=== PATIENT | female | born 1945 | race Hispanic/Latino ===

== ENCOUNTER 2024-12-18 14:05 | Emergency (ER) | payer SELFPAY ==
[2024-12-18] VITALS (11 sets, daily range): BP systolic 104–171; BP diastolic 44–95
--- NOTE | 2024-12-18 14:35 | ED.CVA ---
History of Present Illness
General
Chief Complaint: CVA/TIA Symptoms
Source: patient and family
Exam Limitations: dementia
Time Seen by Provider: 12/18/24 14:23
Nursing documentation reviewed up to this point in time: agreed with
Onset of Stroke Symptoms
Onset of symptoms known: Yes
Date of onset of symptoms: 12/17/24
Time of onset of symptoms: 23:00
History of Present Illness
History of Present Illness:
79-year-old female with past no history of dementia previous drug hypertension hyperlipidemia presenting to the emergency department with concerns of neglect of the left side starting last night around 11 PM roughly 15 hours prior to arrival. Does
have a history of dementia is considered mild at this point.
Review of Systems
Review of Systems
Allergies reviewed?: Yes
All Other Systems: ROS reviewed and negative except as documented in HPI and ROS
Phy Exam
Physical Exam
Physical Exam:
GENERAL: Alert , in no apparent distress
EYE: pupils equal and reactive
NECK: Supple, no significant adenopathy.
ENT: o/p clr, mmm.
CARDIAC: Regular rate and rhythm .
LUNGS: Clear breath sounds bilaterally, no acute respiratory distress, no wheezes/rales/rhonchi
ABDOMEN: Soft, without focal tenderness, no r/g, no cvat
NEUROLOGICAL: Alert oriented to place and self but not to time and current events. Patient has no vision to the left side and has a hemianopsia to the left side. Good strength bilaterally of the upper and lower extremities. Normal sensation
normal general coordination with [id number] but unable to locate my hand on the left side of vision.
SKIN: Warm and dry, skin intact.
MUSCULOSKELETAL: No edema, well perfused.
PSYCH: Normal and appropriate interaction.
Scores
NIH Stroke Score
Level of Consciousness: 0 - Alert
LOC Questions: 0-Answers both correctly
LOC Commands: 0-Performs both correctly
Best Horizontal Gaze: 0-Normal
Visual Otero: 2=Full hemianopia
Facial Palsy: 0=Normal, symmetrical
Motor - Right Arm: 0=No drift 10 seconds
Motor - Left Arm: 0=No drift 10 seconds
Motor - Right Le-No drift 5 seconds
Motor - Left Le-No drift 5 seconds
Limb Ataxia: 0-Absent
Sensation: 0-Normal
Best Language: 0-No aphasia
Dysarthria: 0-Normal
Extinction and Inattention: 0-No abnormality
Total Score:: 2
Course
Orders/Labs/Results
Orders:
Orders
12/18/24 14:33
CT Head W/o Iv Contrast Urgent
Reason For Exam: left sided hemianopsia
Cardiac Monitoring- Treatment ONCE
12/18/24 14:34
Electrocardiogram (*1) Stat
Reason for Study: Other
Other Reason for Exam: neuro symptoms
EKG- Treatment ONCE
12/18/24 14:48
Complete Blood Count/With Diff Urgent
Comprehensive Metabolic Panel Urgent
Creatine Phosphokinase Urgent
Comment: ADD ON
Magnesium Urgent
Comment: ADD ON
12/18/24 15:25
Protime/PTT Urgent
12/18/24 16:56
Labetalol HCl [Trandate] 10 mg IV NOW STA
12/18/24 17:01
Levetiracetam Injectable [Keppra] 1,000 mg IV NOW STA
12/18/24 17:04
Levetiracetam Injectable [Keppra] 1,000 mg .ROUTE .STK-MED ONE
12/18/24 17:07
CT Head & Neck Angio W/wo IV Urgent
Comment:
Reason For Exam: Neurosurgeon request
12/18/24 17:12
Case Management Consult ONCE
Case Management Consult: Other
Comment: N oinsurance,options?
12/18/24 17:16
EEG Routine Routine
Reason for Exam: seizure
Urine Drug Abuse Screen Routine
12/18/24 17:17
Urinalysis Routine
12/18/24 17:18
MRI Brain [MR Brain Without Contrast] Routine
Comment:
Reason For Exam: ICH
OK for patient to be off Cardiac Monitoring for MRI: No
Recent pill cam endoscopy?: No
12/18/24 17:21
Add On- LAB Urgent
Tests Added?: CK, magnesium
12/18/24 19:24
Lorazepam [Ativan] 0.5 mg IV NOW STA
12/18/24 19:25
Lorazepam [Ativan] 2 mg .ROUTE .STK-MED ONE
12/18/24 23:00
Levetiracetam Injectable [Keppra] 1,000 mg IV Q12H
Abnormal Lab Results
12/18/24
14:48
WBC 12.3 H 10^3/uL
(4.8-10.8)
MCH 31.8 H pg
(27.0-31.0)
Abs Immat Gran (auto) 0.1 H 10^3/uL
(0-0.05)
Absolute Neuts (auto) 11.2 H 10^3/uL
(1.4-6.5)
Absolute Lymphs (auto) 0.6 L 10^3/uL
(1.2-3.4)
Neutrophils % 91.0 H %
(42.2-75.2)
Lymphocytes % 4.5 L %
(20.5-51.1)
BUN 19 H mg/dl
(7-17)
Glucose 126 H mg/dl
(70-99)
AST 41 H U/L
(14-36)
ALT 48 H U/L
(0-35)
12/18/24 14:48
12/18/24 14:48
Vital Signs
Initial and Last Documented VS:
Initial Vital Signs
Temp Pulse Resp BP Pulse Ox
99.2 F 98 16 156/71 98
12/18/24 14:08 12/18/24 14:08 12/18/24 14:08 12/18/24 14:08 12/18/24 14:08
Last Documented Vital Signs
Temp Pulse Resp BP Pulse Ox
99.2 F 77 14 109/95 99
12/18/24 14:08 12/18/24 19:00 12/18/24 19:00 12/18/24 19:00 12/18/24 17:32
MDM/Problems Addressed
MDM/Problems Addressed:
79-year-old female presenting to the emergency department today with concerns of loss of vision to the left side starting last night roughly 15 hours prior to arrival to the emergency department. No specific numbness or weakness. Here she has
hemianopsia to the left side otherwise no focal neurologic findings. NIH of 2. Case was discussed with neurology recommending CT angiogram.
CT Noncon showed large right posterior parietal and temporal parenchymal hemorrhage with mild associated leftward midline shift. Case is immediately discussed with neurosurgery plan to transfer for further management. Additional CT angiogram was
performed. Blood pressure was in the 150s patient was given dose of labetalol with improving blood pressure.
*Critical Care Note
Total Time (30-74mins, 75-104mins- exclusive of procedures): Not Applicable
ED Attending Note
-
Portions of this chart may have been created with voice recognition software.� Occasional wrong word or��sound alike� substitutions may have occurred due to the inherent limitations of voice recognition software.
Discharge Plan
Departure
Patient Disposition: Acute [facility]
Date of Disposition: 12/18/24
Time of Disposition: 17:27
Patient with high blood pressure during this ER visit?: No
Condition: Fair
Covid-19: Not Applicable
Discharge Problem:
Cerebral parenchymal hemorrhage
Prescriptions:
No Action
metformin 500 mg Tablet
500 mg PO NOON
donepezil 10 mg Tablet
10 mg PO DAILY@1500
levothyroxine 25 mcg Tablet
25 mcg PO DAILY
mirtazapine 15 mg Tablet
15 mg PO HS
rosuvastatin 20 mg Tablet
10 mg PO Q48H
memantine 10 mg Tablet
10 mg PO DAILY@1100
cholecalciferol (vitamin D3) [Vitamin D3] 25 mcg (1,000 unit) Tablet
25 mcg PO DAILY
magnesium oxide 400 mg magnesium Tablet
400 mg PO HS
Referrals:
NONE,* [Family Provider] -
Hospital Transfer
Other hospital: [facility]
I certify that the patient requires transfer: Yes
Discussed case with accepting physician: Yes
Reason for transfer: higher level of care, availability of service and specialties available
Interventions
Interventions:
*Risk Screen - Suicide Last Done: 12/18/24 14:08
*General Assessment Last Done: 12/18/24 14:08
*Neglect/Abuse Screening Last Done: 12/18/24 14:08
*ED- Fall Risk Assessment Last Done: 12/18/24 14:08
*ED COVID-19 Vaccine History Last Done: 12/18/24 14:08
ED- Pulmonary Assessment Last Done: 12/18/24 14:31
ED- Neurological Assessment Last Done: 12/18/24 14:31
ED- Cardiac Assessment Last Done: 12/18/24 14:31
Discharge Date and Time
Print Language: GIBRALTARIAN
[2024-12-18 15:03] LABS: % Basophils 0.3 % (0-2); % Eosinophils 0.1 % (0-6); % Immature Granulocytes 0.4 % (0-0.5); % Lymphocytes 4.5 % (20.5-51.1); % Monocytes 3.7 % (1.7-9.3); Absolute Immature Granulocytes 0.1 10^3/uL (0-0.05); Absolute Lymphocytes 0.6 10^3/uL (1.2-3.4); Absolute Monocytes 0.5 10^3/uL (0.1-0.6); Absolute Neutrophils 11.2 10^3/uL (1.4-6.5); Hematocrit 41.8 % (37.0-47.0); Hemoglobin 14.1 g/dL (12.0-16.0); Mean Corp Hgb Conc. 33.7 g/dL (33.0-37.0); Mean Corpuscular Hgb 31.8 pg (27.0-31.0); Mean Corpuscular Volume 94.4 fL (81.0-99.0); Mean Platelet Volume 9.7 fL (7.4-10.4); Nucleated Red Blood Cells % 0 %; Platelet Count 267 10^3/uL (130-400); Red Blood Cell Count 4.43 10^6/uL (4.20-5.40); Red Cell Dist. Width 12.8 % (11.5-14.5); White Blood Cell Count 12.3 10^3/uL (4.8-10.8)
[2024-12-18 15:23] LABS: ALT (SGPT) 48 U/L (0-35); AST (SGOT) 41 U/L (14-36); Albumin 4.8 g/dl (3.5-5.0); Alkaline Phosphatase 103 U/L (38-126); Blood Urea Nitrogen 19 mg/dl (7-17); Calcium 8.8 mg/dl (8.4-10.2); Carbon Dioxide 25 mmol/L (22-30); Chloride 105 mmol/L (98-107); Glucose 126 mg/dl (70-99); Potassium 4.1 mmol/L (3.5-5.1); Sodium 140 mmol/L (135-145); Total Bilirubin 0.7 mg/dl (0.2-1.3); Total Protein 7.3 g/dl (6.3-8.2); eGFR > 60.00
[2024-12-18 15:57] LABS: INR 0.96; PT 13.3 Sec (11.4-14.6)
[2024-12-18 15:58] LABS: APTT 29.7 Sec (23.4-35.0)
[2024-12-18] MEDS: TRANDATE 10 MG IV (16:58)
--- NOTE | 2024-12-18 16:59 | CON.NEURO ---
Consultation
Order
Date of Consultation: 12/18/24
Requesting Provider: Tommy Mcguire Jr, PA-C
Reason for Consult: ICH
Neurology Consultation Note.
HPI: This is a 79-year-old woman who presented to [facility] on 12/18/2024 with visual symptoms. The patient's daughter reports that this morning around 8 or 9 AM, the patient began bumping into levin and had difficulty perceiving
objects on her left side while eating. Ms. Bowden has a history of dementia and has been symptomatic since at least 2021.
ER VS: 156/71-171/84, 98, afebrile
EKG:NSR, QTc Int : 450 ms
Labs: Glucose�126, WBCs 12.3, normal PT, PTT, sodium, platelets.
CT head wo contrast-Large right posterior parietal and temporal parenchymal hemorrhage with mild associated leftward midline shift.
CTA head/neck-pending
PMH: dementia, HTN, DLP, DM, hypothyroidism, vitamin D deficiency
PSH: hysterectomy
SH: on 10/05/2024, relocated from [facility] to 10 days ago; non-smoker, no history excess alcohol use; retired nurse recreation assistant
FH: Father from asthma
All:NKDA
ROS: Limited due to encephalopathy
General: Intermittently agitated
Cardio: Regular rate and rhythm . Extremities are without cyanosis or edema.
Neuro:
Mental Status: Alert, oriented to person, person. Attends to examiner briefly. Follows simple requests. Poor attention, nonfluent in Gabonese
Cranial Nerves: Orthophoric primary gaze. Pupils 2 mm, reactive. Blink to threat on the left. No clear facial weakness or dysarthria.
Motor: Moves all limbs antigravity symmetrically.
Reflexes: Limited exam due to cooperation
Sensory: Limited exam due to poor attention
Coordination: No tremors myoclonic movements.
Gait: deferred
Assessment and Plan:
I. Acute right temporoparietal ICH. Likely etiology�hypertensive vasculopathy versus amyloid angiopathy.
II. Encephalopathy (vascular, neurodegenerative).
III. Hypertensive emergency
- NPO
- AHA guidelines recommend lowering systolic SBP to <160 mmHg
- Treat persistently elevated MAP>110 with Labetalol IV;
- Maintain elevation of HOB 30-45 degrees
-Continuous monitoring using pulse oximetry if O2�saturation is <96%
-Normal saline should be used for maintenance and replacement fluids.
-Neurosurgery consultation
- If elevated intracranial pressure is suspected or herniation is apparent in imaging- Hyperventilate to maintain pCO2�25mm for a maximum length of time of 6 hours; Osmotic diuresis using Mannitol: load 1g per kg IV bolus and maintain on 0.5g per kg
IV Q6h; check serum osmolality 1 hour prior to each dose.���Dose should be held if serum osm>310
-Treat persistently elevated MAP>110 with Labetalol IV
-Follow-up CTA of the head result
-SCD/JASWINDER
I personally reviewed all radiology and labs along with past medical records pertinent to current medical problems. Total time spent in patient care is 60 minutes.
Thank you for allowing us to participate in the care of this patient. We will continue to follow. Please do not hesitate to contact us with any questions or concerns.
Subjective/Objective
Subjective Data
Date of Service: December 18, 2024
Objective Data
Vital Signs
Temp Pulse Resp BP Pulse Ox
37.3 C 83 13 156/61 97
12/18/24 14:08 12/18/24 16:46 12/18/24 16:46 12/18/24 16:46 12/18/24 16:46
Lab Results
12/18/24 14:48
12/18/24 14:48
PT 13.3 Sec (11.4-14.6) 12/18/24 15:25
INR 0.96 12/18/24 15:25
APTT 29.7 Sec (23.4-35.0) 12/18/24 15:25
Sodium 140 mmol/L (135-145) 12/18/24 14:48
Potassium 4.1 mmol/L (3.5-5.1) 12/18/24 14:48
BUN 19 mg/dl (7-17) H 12/18/24 14:48
Glucose 126 mg/dl (70-99) H 12/18/24 14:48
Calcium 8.8 mg/dl (8.4-10.2) 12/18/24 14:48
Patient Allergies
No Known Allergies Allergy (Unverified 12/18/24 14:13)
Medications
-
Home Medications
�Medication �Instructions �Recorded
cholecalciferol (vitamin D3) 25 25 mcg PO DAILY 12/18/24
mcg (1,000 unit) tablet (Vitamin
D3)
donepezil 10 mg tablet 10 mg PO DAILY@1500 12/18/24
levothyroxine 25 mcg tablet 25 mcg PO DAILY 12/18/24
magnesium oxide 400 mg PO HS 12/18/24
memantine 10 mg tablet 10 mg PO DAILY@1100 12/18/24
metformin 500 mg tablet 500 mg PO NOON 12/18/24
mirtazapine 15 mg tablet 15 mg PO HS 12/18/24
rosuvastatin 20 mg tablet 10 mg PO Q48H 12/18/24
Vital Signs and Labs
-
Vital Signs and Labs:
Vital Signs
Temp Pulse Resp BP Pulse Ox
37.3 C 83 13 156/61 97
12/18/24 14:08 12/18/24 16:46 12/18/24 16:46 12/18/24 16:46 12/18/24 16:46
Lab Results
12/18/24 14:48
12/18/24 14:48
PT 13.3 Sec (11.4-14.6) 12/18/24 15:25
INR 0.96 12/18/24 15:25
APTT 29.7 Sec (23.4-35.0) 12/18/24 15:25
Sodium 140 mmol/L (135-145) 12/18/24 14:48
Potassium 4.1 mmol/L (3.5-5.1) 12/18/24 14:48
BUN 19 mg/dl (7-17) H 12/18/24 14:48
Glucose 126 mg/dl (70-99) H 12/18/24 14:48
Calcium 8.8 mg/dl (8.4-10.2) 12/18/24 14:48
Medications
-
Medications:
Generic Name Dose Route Start Last Admin
Trade Name Freq PRN Reason Stop Dose Admin
Levetiracetam 1,000 mg 12/18/24 20:00
Levetiracetam (100 Mg/Ml) 500 Mg/5 Ml Vial IV 01/15/25 19:59
Q12 AMILCAR
Home Medications
-
Home Medications
cholecalciferol (vitamin D3) 25 mcg (1,000 unit) tablet (Vitamin D3) 25 mcg PO DAILY 12/18/24
donepezil 10 mg tablet 10 mg PO DAILY@1500 12/18/24
levothyroxine 25 mcg tablet 25 mcg PO DAILY 12/18/24
magnesium oxide 400 mg PO HS 12/18/24
memantine 10 mg tablet 10 mg PO DAILY@1100 12/18/24
metformin 500 mg tablet 500 mg PO NOON 12/18/24
mirtazapine 15 mg tablet 15 mg PO HS 12/18/24
rosuvastatin 20 mg tablet 10 mg PO Q48H 12/18/24
[2024-12-18] MEDS: KEPPRA 1000 MG IV (17:06)
[2024-12-18 17:36] LABS: Creatine Phosphokinase 65 U/L (30-135); Magnesium 2.3 mg/dl (1.6-2.3)
[2024-12-18] MEDS: ATIVAN 0.5 MG IV (19:35)
== END 2024-12-18 19:55 | disposition short-term general hospital (02) ==
LOC: EMR 14:05
PROVIDERS: Physician Assistant; EMERGENCY PHYSICIAN Emergency Medicine; OTHER PHYSICIAN Psychiatry & Neurology Neurology
DX: I61.8 Other nontraumatic intracerebral hemorrhage (principal); G93.40 Encephalopathy, unspecified; I16.1 Hypertensive emergency; E03.9 Hypothyroidism, unspecified; E11.9 Type 2 diabetes mellitus without complications; F03.90 Unspecified dementia, unspecified severity, without behavioral disturbance, psychotic disturbance, mood disturbance, and anxiety; Z79.899 Other long term (current) drug therapy; Z90.710 Acquired absence of both cervix and uterus
CPT/HCPCS: 99285; 96374; 96375; 70450; 70496; 70498; 80053; 82550; 83735; 85025; 85610; 85730; 93005; Q9967

== ENCOUNTER → 2025-01-15 10:36 | Outpatient (REF) | payer SELFPAY | LOC: RAD 10:36 | PROVIDERS: FAMILY PHYSICIAN Family Medicine | DX: R05.3 Chronic cough (principal) | CPT/HCPCS: 71045 ==

== ENCOUNTER 2025-01-22 16:00 | Outpatient (RCR) | payer SELFPAY | END 2025-01-22 23:59 | disposition home or self-care (01) | LOC: ROT 16:00 | DX: R26.81 Unsteadiness on feet (principal); R47.01 Aphasia; R27.9 Unspecified lack of coordination; R41.0 Disorientation, unspecified; Z73.6 Limitation of activities due to disability; I69.21 Cognitive deficits following other nontraumatic intracranial hemorrhage; I69.211 Memory deficit following other nontraumatic intracranial hemorrhage; I69.228 Other speech and language deficits following other nontraumatic intracranial hemorrhage | CPT/HCPCS: 97110; 97112; 97163; 97167; 97530; 97535 ==

== ENCOUNTER 2025-02-05 10:11 | Emergency (ER) | payer OTHER, SELFPAY ==
[2025-02-05 10:13] VITALS: BP 138/62
[2025-02-05 11:10] VITALS: BMI 21.5
[2025-02-05 11:27] LABS: % Basophils 0.7 % (0-2); % Eosinophils 0.3 % (0-6); % Immature Granulocytes 1.6 % (0-0.5); % Lymphocytes 9.9 % (20.5-51.1); % Monocytes 6.9 % (1.7-9.3); % Neutrophils 80.6 % (42.2-75.2); Absolute Basophils 0.1 10^3/uL (0-0.2); Absolute Immature Granulocytes 0.2 10^3/uL (0-0.05); Absolute Lymphocytes 0.9 10^3/uL (1.2-3.4); Absolute Monocytes 0.6 10^3/uL (0.1-0.6); Absolute Neutrophils 7.4 10^3/uL (1.4-6.5); Hematocrit 40.8 % (37.0-47.0); Hemoglobin 13.4 g/dL (12.0-16.0); Mean Corp Hgb Conc. 32.8 g/dL (33.0-37.0); Mean Corpuscular Hgb 32.1 pg (27.0-31.0); Mean Corpuscular Volume 97.8 fL (81.0-99.0); Mean Platelet Volume 9.9 fL (7.4-10.4); Nucleated Red Blood Cells % 0 %; Platelet Count 239 10^3/uL (130-400); Red Blood Cell Count 4.17 10^6/uL (4.20-5.40); Red Cell Dist. Width 13.1 % (11.5-14.5); White Blood Cell Count 9.1 10^3/uL (4.8-10.8)
[2025-02-05 11:34] LABS: Urine Albumin 1+ (Neg - Trace); Urine Bilirubin Negative (Negative); Urine Character Clear (Clear); Urine Color Yellow; Urine Glucose Negative (Negative); Urine Ketone Negative (Negative); Urine Leukocyte 1+ (Negative); Urine Nitrite Negative (Negative); Urine Occult Blood 2+ (Negative); Urine Specific Gravity 1.025 (<1.030); Urine Urobilinogen Negative (Neg - 1+)
[2025-02-05 11:35] LABS: ALT (SGPT) 22 U/L (0-35); AST (SGOT) 24 U/L (14-36); Alkaline Phosphatase 70 U/L (38-126); Blood Urea Nitrogen 25 mg/dl (7-17); Calcium 9.4 mg/dl (8.4-10.2); Carbon Dioxide 27 mmol/L (22-30); Chloride 109 mmol/L (98-107); Estimated Creatinine Clearance 41 ml/min; Glucose 89 mg/dl (70-99); Lipase 232 U/L (23-300); Magnesium 2.3 mg/dl (1.6-2.3); Sodium 142 mmol/L (135-145); Total Bilirubin 0.4 mg/dl (0.2-1.3); Total Protein 6.4 g/dl (6.3-8.2); eGFR > 60.00
[2025-02-05 11:45] LABS: Urine Urothelial Cell 0-2 /LPF (FEW)
[2025-02-05 11:47] LABS: Urine Bacteria Moderate (Negative)
[2025-02-05 12:00] VITALS: BP 143/67
[2025-02-05] MEDS: PROTONIX IV 40 MG IV (12:01)
[2025-02-05] MEDS: MORPHINE SULFATE 2 MG IV (12:02)
--- NOTE | 2025-02-05 14:02 | ED.CVA ---
History of Present Illness
General
Chief Complaint: CVA/TIA Symptoms
Source: patient
Exam Limitations: none
Time Seen by Provider: 02/05/25 10:18
Nursing documentation reviewed up to this point in time: agreed with
Onset of Stroke Symptoms
Onset of symptoms known: Yes
Date of onset of symptoms: 02/05/25
History of Present Illness
History of Present Illness:
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 Daughter states that
patient does exhibit confusion and slurred speech periodically, but appeared to be more prevalent this morning. However, at the time evaluation ED, daughter does state that patient is pretty much back at her baseline. In addition, patient started
to complain of right-sided abdominal pain, which she has experienced intermittently over the past 1 month. Denies nausea, vomiting, or diarrhea. Denies fever or chills. Denies headache. Denies coughing. Denies recent change in medications or
diet. Patient is currently not taking any blood thinning medications. Patient is currently receiving outpatient physical therapy and Occupational Therapy.
Review of Systems
Review of Systems
Allergies reviewed?: Yes
All Other Systems: ROS reviewed and negative except as documented in HPI and ROS
Constitutional: Reports no symptoms; Denies fever or chills
Respiratory: Reports no symptoms; Denies cough
Cardiac: Reports no symptoms
ABD/GI: Reports abdominal pain; Denies nausea, vomiting or diarrhea
: Reports no symptoms
Musculoskeletal: Reports no symptoms
Skin: Reports no symptoms
Neurological: Reports other (Confusion)
Phy Exam
Physical Exam
Physical Exam:
Physical Exam
General: no apparent distress, not acutely ill. afebrile
Head: nc/at. eomi
Neck: supple. normal range of motion.
Heart: s1/s2 regular rate and rhythm
Lungs: no acute respiratory distress. clear bilaterally
Abdomen: normal bowel sounds. not tender.
Neuro: alert and oriented x 2. no focal neurological deficits. normal speech.
Skin: no rash
Psychiatric: well kept. interactive and cooperative
Extremities: no edema. no calf tenderness.
Course
Orders/Labs/Results
Orders:
Orders
02/05/25 10:43
US Abdomen Complete/Upper Urgent
Comment:
Reason For Exam: RUQ/epigastric pain
02/05/25 10:44
CT Head W/o Iv Contrast Urgent
Comment:
Reason For Exam: mental status change, hx recent cva
02/05/25 11:08
Complete Blood Count/With Diff Urgent
Comprehensive Metabolic Panel Urgent
Lipase Urgent
Magnesium Urgent
Urinalysis Reflex To Culture Urgent
Date Specimen was Collected: 02/05/25
Time Specimen was Collected: 10:55
Urine Microscopic Reflex Cult Urgent
Urine Culture Urgent
ROBBY Source: U
Specimen Description:
Date Specimen was Collected: 02/05/25
Time Specimen was Collected: 10:55
02/05/25 11:57
Morphine Sulfate 2 mg IV NOW STA
Pantoprazole [Protonix IV] 40 mg IV NOW STA
Abnormal Lab Results
02/05/25
11:08
RBC 4.17 L 10^6/uL
(4.20-5.40)
MCH 32.1 H pg
(27.0-31.0)
MCHC 32.8 L g/dL
(33.0-37.0)
Abs Immat Gran (auto) 0.2 H 10^3/uL
(0-0.05)
Absolute Neuts (auto) 7.4 H 10^3/uL
(1.4-6.5)
Absolute Lymphs (auto) 0.9 L 10^3/uL
(1.2-3.4)
Immature Gran % 1.6 H %
(0-0.5)
Neutrophils % 80.6 H %
(42.2-75.2)
Lymphocytes % 9.9 L %
(20.5-51.1)
Chloride 109 H mmol/L
(98-107)
BUN 25 H mg/dl
(7-17)
Ur Occult Blood Reflex 2+ A
(Negative)
Leukocyte Esterase Rfl 1+ A
(Negative)
Urine RBC 3-6 A /HPF
(0-2)
Urine Bacteria (Reflex) Moderate A
(Negative)
Urine Albumin (Reflex) 1+ A
(Neg - Trace)
02/05/25 11:08
02/05/25 11:08
Vital Signs
Initial and Last Documented VS:
Initial Vital Signs
Temp Pulse Resp BP Pulse Ox
99 F 97 16 138/62 97
02/05/25 10:13 02/05/25 10:13 02/05/25 10:13 02/05/25 10:13 02/05/25 10:13
Last Documented Vital Signs
Temp Pulse Resp BP Pulse Ox
99 F 78 16 142/79 97
02/05/25 10:13 02/05/25 14:03 02/05/25 14:03 02/05/25 14:03 02/05/25 14:03
MDM/Problems Addressed
MDM/Problems Addressed:
CT head and abdominal ultrasound report reviewed and discussed with patient and her daughter. Repeat abdominal exam: Soft and nontender. Advised patient and daughter to follow-up with her neurologist as well as referred GI physician for
reevaluation, with return precautions provided, i.e. fever/worsening pain/vomiting. Patient otherwise is afebrile, hemodynamically stable, neurologically intact, without any acute distress, at time of discharge.
*Critical Care Note
Total Time (30-74mins, 75-104mins- exclusive of procedures): Not Applicable
ED Attending Note
-
Portions of this chart may have been created with voice recognition software.� Occasional wrong word or��sound alike� substitutions may have occurred due to the inherent limitations of voice recognition software.
Discharge Plan
Departure
Patient Disposition: Home (Routine Discharge)
Date of Disposition: 02/05/25
Time of Disposition: 14:02
Patient with high blood pressure during this ER visit?: Yes
Condition: Good
Discharge Problem:
Altered mental status, Abdominal pain
Instructions: Dementia (including Alzheimer disease), Abdominal pain in adults - ED discharge instructions
Prescriptions:
No Action
metformin 500 mg Tablet
500 mg PO NOON
donepezil 10 mg Tablet
10 mg PO DAILY@1500
levothyroxine 25 mcg Tablet
25 mcg PO DAILY
mirtazapine 15 mg Tablet
15 mg PO HS
rosuvastatin 20 mg Tablet
10 mg PO Q48H
memantine 10 mg Tablet
10 mg PO DAILY@1100
cholecalciferol (vitamin D3) [Vitamin D3] 25 mcg (1,000 unit) Tablet
25 mcg PO DAILY
magnesium oxide 400 mg magnesium Tablet
400 mg PO HS
Referrals:
Julian Stewart MD [Family Provider] -
Sky Lr MD [Active] -
Activity Restrictions/Additional Instructions:
As discussed, please follow-up with your primary care physician and/or referred to GI physician for further evaluation and treatment. Please consider returning to ED with worsening symptoms, i.e. fever/worsening pain/vomiting.
Interventions
Interventions:
*Risk Screen - Suicide Last Done: 02/05/25 11:12
*General Assessment Last Done: 02/05/25 11:12
*Neglect/Abuse Screening Last Done: 02/05/25 11:12
*ED- Fall Risk Assessment Last Done: 02/05/25 11:20
*ED COVID-19 Vaccine History Last Done: 02/05/25 11:20
*Nursing Disposition Last Done: 02/05/25 14:44
ED- Pulmonary Assessment Last Done: 02/05/25 11:20
ED- Neurological Assessment Last Done: 02/05/25 11:20
ED- Cardiac Assessment Last Done: 02/05/25 11:20
ED Swallowing Screen Last Done: 02/05/25 11:20
Discharge Date and Time
Discharge Date/Time: 02/05/25 14:45
Print Language: [place]
[2025-02-05 14:03] VITALS: BP 142/79
== END 2025-02-05 14:45 | disposition home or self-care (01) ==
LOC: EMR 10:11
PROVIDERS: EMERGENCY PHYSICIAN Emergency Medicine; FAMILY PHYSICIAN Family Medicine
DX: R41.82 Altered mental status, unspecified (principal); R10.9 Unspecified abdominal pain; F03.90 Unspecified dementia, unspecified severity, without behavioral disturbance, psychotic disturbance, mood disturbance, and anxiety; Z86.73 Personal history of transient ischemic attack (TIA), and cerebral infarction without residual deficits
CPT/HCPCS: 99284; 96374; 96375; 70450; 76700; 80053; 81003; 81015; 83690; 83735; 85025; 87086

== ENCOUNTER 2025-02-19 09:19 | Outpatient (RCR) | payer OTHER, SELFPAY | END 2025-02-19 23:59 | disposition home or self-care (01) | LOC: ROT 09:19 | DX: R47.01 Aphasia (principal); R26.81 Unsteadiness on feet; R27.9 Unspecified lack of coordination; R41.0 Disorientation, unspecified; Z73.6 Limitation of activities due to disability; I69.21 Cognitive deficits following other nontraumatic intracranial hemorrhage; I69.211 Memory deficit following other nontraumatic intracranial hemorrhage; I69.228 Other speech and language deficits following other nontraumatic intracranial hemorrhage | CPT/HCPCS: 97110; 97112; 97116; 97530; 97535 ==

== ENCOUNTER → 2025-03-10 12:23 | Outpatient (REF) | payer OTHER, SELFPAY | LOC: MRI 12:23 | PROVIDERS: ATTENDING PHYSICIAN Specialist; FAMILY PHYSICIAN Family Medicine | DX: I61.1 Nontraumatic intracerebral hemorrhage in hemisphere, cortical (principal) | CPT/HCPCS: 70553; A9575 ==

== ENCOUNTER → 2025-03-13 08:40 | Outpatient (REF) | payer OTHER, SELFPAY | LOC: DHSLP 08:40 | PROVIDERS: ATTENDING PHYSICIAN Internal Medicine Critical Care Medicine | DX: G47.33 Obstructive sleep apnea (adult) (pediatric) (principal); R09.02 Hypoxemia; G47.00 Insomnia, unspecified | CPT/HCPCS: 95810 ==

== ENCOUNTER 2025-03-13 10:56 | Outpatient (RCR) | payer OTHER, SELFPAY | END 2025-03-14 06:55 | disposition home or self-care (01) | LOC: ROT 10:56 | DX: Z73.6 Limitation of activities due to disability (principal); R47.01 Aphasia; R26.81 Unsteadiness on feet; R27.9 Unspecified lack of coordination; R41.0 Disorientation, unspecified; I63.9 Cerebral infarction, unspecified; I69.21 Cognitive deficits following other nontraumatic intracranial hemorrhage; I69.211 Memory deficit following other nontraumatic intracranial hemorrhage; I69.228 Other speech and language deficits following other nontraumatic intracranial hemorrhage | CPT/HCPCS: 97530; 97535 ==

== ENCOUNTER → 2025-05-02 10:59 | Outpatient (REF) | payer OTHER, SELFPAY | LOC: RAD 10:59 | PROVIDERS: ATTENDING PHYSICIAN Specialist | DX: K21.9 Gastro-esophageal reflux disease without esophagitis (principal) | CPT/HCPCS: 74246 ==

== ENCOUNTER → 2025-06-23 09:53 | Outpatient (REF) | payer OTHER, SELFPAY | LOC: MRI 09:53 | PROVIDERS: ATTENDING PHYSICIAN Specialist; FAMILY PHYSICIAN Family Medicine | DX: I61.1 Nontraumatic intracerebral hemorrhage in hemisphere, cortical (principal) | CPT/HCPCS: 70553; A9575 ==